=== PATIENT | female | born 1965 | race Caucasian/White ===

== ENCOUNTER 2019-09-03 13:51 | Emergency (ER) | payer MEDICARE ==
[2019-09-03] MEDS ORDERED: Ketorolac Tromethamine 60 MG/2 ML VIAL ONE (14:29)
== END 2019-09-03 14:47 | disposition home or self-care (01) ==
LOC: BURERS 13:51
DX: S39.012A Strain of muscle, fascia and tendon of lower back, initial encounter (principal); I10 Essential (primary) hypertension
CPT/HCPCS: 96372; 99283; J1885

== ENCOUNTER 2019-09-08 12:29 | Emergency (ER) | payer MEDICARE ==
[2019-09-08] MEDS ORDERED: Bacitracin 1 PK ONE (12:54)
[2019-09-08] MEDS ORDERED: Cephalexin 250 MG CAP ONE (12:54)
== END 2019-09-08 13:18 | disposition home or self-care (01) ==
LOC: BURERS 12:29
DX: S51.811A Laceration without foreign body of right forearm, initial encounter (principal); F31.9 Bipolar disorder, unspecified; W22.8XXA Striking against or struck by other objects, initial encounter
CPT/HCPCS: 12002

== ENCOUNTER 2020-01-19 20:22 | Emergency (ER) | payer MEDICARE ==
[2020-01-19] MEDS ORDERED: Acetaminophen/Codeine 30-300mg Tablet ONE (20:41)
[2020-01-19] MEDS ORDERED: Cyclobenzaprine 10 MG TAB ONE (20:41)
== END 2020-01-19 20:48 | disposition home or self-care (01) ==
LOC: BURERS 20:22
DX: M54.5 Low back pain (principal); F31.9 Bipolar disorder, unspecified; Z79.899 Other long term (current) drug therapy
CPT/HCPCS: 99283

== ENCOUNTER 2020-03-11 19:01 | Emergency (ER) | payer MEDICARE ==
[2020-03-11] MEDS ORDERED: Morphine 4 MG/ML VIAL ONE (19:40)
[2020-03-11] MEDS ORDERED: Ketorolac Tromethamine 30 MG/ML VIAL ONE (19:41)
[2020-03-11] MEDS ORDERED: predniSONE 20 MG TAB ONE (19:41)
== END 2020-03-11 19:59 | disposition home or self-care (01) ==
LOC: BURERS 19:01
DX: M54.41 Lumbago with sciatica, right side (principal); F31.9 Bipolar disorder, unspecified; Z79.899 Other long term (current) drug therapy
CPT/HCPCS: 96372; 99283; J1885; J2270; J7512